=== PATIENT | female | born 1975 | race Caucasian/White ===

== ENCOUNTER 2020-06-01 18:21 | Inpatient (IN) | payer OTHER ==
[~2020-06-01] VITALS: Ht 162.6 cm; Wt 107.0 kg
--- NOTE | 2020-06-01 19:10 | NUR ---
PT CAME TO THE ER FROM [facility] C/O R SIDED HEADACHE AND FACIAL NUMBNESS SINCE 899. PT HAS A HX OF STROKE LAST 05/2019. NO NEUROLIGICAL DEFICITS. PT AAOX4, VSS, RESPIRATIONS EVEN AND UNLABORED ON ROOM AIR W/ NAD NOTED. PT CONNECTED TO THE TREATMENT COORDINATOR AND POX.
[2020-06-01 19:26] LABS: BASOPHILS % (AUTO) 0.7 % (0.0-2.0); EOSINOPHILS % (AUTO) 2.7 % (0.0-6.0); HEMATOCRIT 32 % (33-45); HEMOGLOBIN 10.9 g/dL (11.5-14.8); LYMPHOCYTES # (AUTO) 1.2 /CMM (0.8-4.8); LYMPHOCYTES % (AUTO) 29.1 % (20.0-44.0); MEAN CORPUSCULAR HGB CONC 34 g/dl (31.0-36.0); MEAN CORPUSCULAR VOLUME 90 fL (82-100); MONOCYTES # (AUTO) 0.3 /CMM (0.1-1.30); MONOCYTES % (AUTO) 7.1 % (2.0-12.0); NEUTROPHILS # (AUTO) 2.6 /CMM (1.8-8.9); NEUTROPHILS % (AUTO) 60.4 % (43.0-81.0); PLATELET COUNT (AUTO) 264 /CMM (150-450); RED BLOOD CELL COUNT(AUTO) 3.57 MIL/uL (4.0-5.2); WHITE BLOOD COUNT (AUTO) 4.2 K/uL (4.3-11.0)
--- NOTE | 2020-06-01 19:29 | NUR ---
PT TAKEN TO RADIOLOGY FOR CT
[2020-06-01] MEDS ORDERED: METOCLOPRAMIDE HCL 10 MG/2 ML VIAL IV ONE (19:30)
[2020-06-01] MEDS ORDERED: diphenhydrAMINE HCL 50 MG/ML VIAL IV ONE (19:30)
[2020-06-01] MEDS ORDERED: IV NS 0.9% 1,000 ML BAG IV ONE (19:30)
[2020-06-01] MEDS ORDERED: METOCLOPRAMIDE HCL 10 MG/2 ML VIAL ONE (19:32)
[2020-06-01] MEDS ORDERED: diphenhydrAMINE HCL 50 MG/ML VIAL ONE (19:32)
[2020-06-01 19:39] LABS: CALCIUM, SERUM 8.3 mg/dL (8.5-10.1); CARBON DIOXIDE 26 mmol/L (21-32); CHLORIDE 106 mmol/L (98-107); GLUCOSE 130 mg/dL (74-106); POTASSIUM 3.7 mmol/L (3.5-5.1); SODIUM SERUM 140 mmol/L (136-145); UREA NITROGEN, BLOOD 20 mg/dL (7-18)
--- NOTE | 2020-06-01 19:39 | NUR ---
PT BACK FROM RADIOLOGY
[2020-06-01 19:44] LABS: ALANINE AMINOTRANSFERASE 23 U/L (12-78); ALBUMIN 3.2 g/dL (3.4-5.0); ALKALINE PHOSPHATASE 62 U/L (46-116); ASPARTATE AMINOTRANSFERASE 15 U/L (15-37); BILIRUBIN,DIRECT 0.1 mg/dL (0.0-0.2); BILIRUBIN,TOTAL 0.3 mg/dL (0.2-1.0); TOTAL PROTEIN, SERUM 7.6 g/dL (6.4-8.2)
--- NOTE | 2020-06-01 19:54 | NUR ---
CALL FROM LAB, COVID NEGATIVE.
[2020-06-01] MEDS ORDERED: ONDANSETRON HCL/PF 4 MG/2 ML VIAL IV PRN (21:30)
[2020-06-01] MEDS ORDERED: IV NS 0.9% 1,000 ML IV PRN (21:30)
[2020-06-01] MEDS ORDERED: CLOPIDOGREL BISULFATE 75 MG TABLET PO ONE (21:30)
--- NOTE | 2020-06-01 21:46 | NUR ---
NURSE IS NOT AVAILABLE FOR REPORT. NURSE WILL CALL BACK
--- NOTE | 2020-06-01 21:50 | NUR ---
REPORT GIVEN TO ABDIEL PERALES FOR [place]
--- NOTE | 2020-06-01 22:21 | NUR ---
PT TRANSFERRED TO ROOM 108 VIA ACLS PROTOCOL
[2020-06-01 23:02] VITALS: BP 130/82
[2020-06-01] MEDS: SIMVASTATIN 20 MG TABLET PO SCH (23:23)
[2020-06-01] MEDS: BACLOFEN (10 MG) 10 MG TABLET PO SCH (23:51)
[2020-06-01] MEDS: HYDROCODONE/APAP 10/325MG TABLET PO PRN (23:52)
[2020-06-02] VITALS (7 sets, daily range): BP systolic 94–125; BP diastolic 54–80
[2020-06-02] MEDS ORDERED: SIMETHICONE 80 MG TAB.CHEW PO PRN (00:30)
[2020-06-02] MEDS ORDERED: ONDANSETRON 4 MG TAB.RAPDIS PO PRN (00:30)
[2020-06-02] MEDS ORDERED: diphenhydrAMINE HCL 50 MG/ML VIAL IV PRN (00:30)
[2020-06-02] MEDS ORDERED: BISA-79 GT (01:10)
[2020-06-02] MEDS: ZOLPIDEM TARTRATE 5 MG TABLET PO PRN (02:46)
[2020-06-02] MEDS: LIDOCAINE 5% (PATCH) 1 EA PATCH TP SCH (02:57)
--- NOTE | 2020-06-02 04:57 | NUR ---
RN notes Admitted a 44 year old female from ER via stretcher in stable condition. No distress noted, breathing even and unlabored. Alert and oriented, verbally able to communicate needs. Complaint of left leg pain, restless leg syndrome. [place] given with relief. Asked for ambien for sleep, with help. On room air, breathing even and unlabored. Meds given, needs attended. Kept clean and dry. Will endorse to next shift for continuity of care.
[2020-06-02 06:48] LABS: BASOPHILS % (AUTO) 0.6 % (0.0-2.0); EOSINOPHILS % (AUTO) 4.4 % (0.0-6.0); HEMATOCRIT 29 % (33-45); HEMOGLOBIN 9.8 g/dL (11.5-14.8); LYMPHOCYTES # (AUTO) 1.3 /CMM (0.8-4.8); LYMPHOCYTES % (AUTO) 32.7 % (20.0-44.0); MEAN CORPUSCULAR HGB CONC 34 g/dl (31.0-36.0); MEAN CORPUSCULAR VOLUME 89 fL (82-100); MONOCYTES # (AUTO) 0.3 /CMM (0.1-1.30); MONOCYTES % (AUTO) 7.3 % (2.0-12.0); NEUTROPHILS # (AUTO) 2.1 /CMM (1.8-8.9); PLATELET COUNT (AUTO) 210 /CMM (150-450); RED BLOOD CELL COUNT(AUTO) 3.24 MIL/uL (4.0-5.2); WHITE BLOOD COUNT (AUTO) 3.9 K/uL (4.3-11.0)
[2020-06-02 06:51] LABS: CALCIUM, SERUM 8.5 mg/dL (8.5-10.1); CREATININE 0.7 mg/dL (0.6-1.3); POTASSIUM 3.6 mmol/L (3.5-5.1)
--- NOTE | 2020-06-02 07:30 | NUR ---
AQUATICS INSTRUCTOR OPENING NOTES RECEIVED PT ALERT AND ORIENTED X4. NO ACUTE DISTRESS NOTED AT THIS TIME. ON ROOM AIR WITH O2 SAT OF 100%. ON CASING RUNNING MACHINE TENDER WITH NSR, AND HR IN 70S. WITH WEAKNESS ON LEFT LOWER EXT'S. SKIN IS WARM AND DRY TO TOUCH. IV#20 ON RIGHT HAND INTACT AND RUNNING NS @ 75ML/HR. BED KEPT IN LOW POSITION. BED ALARM ON. CALL LIGHT LEFT WITHIN REACH. WILL CONTINUE TO MONITOR.
[2020-06-02] MEDS: HYDROCODONE/APAP 10/325MG TABLET PO PRN ×2 (08:13→17:50)
[2020-06-02] MEDS: LACTULOSE 10 G/15 ML UDC (PYXIS) PO SCH ×2 (08:17→17:59)
[2020-06-02] MEDS: busPIRone 5 MG TABLET PO SCH ×3 (08:17→17:58)
[2020-06-02] MEDS: CHOLECALCIFEROL 1,000 UNIT TABLET (VIT D3) PO SCH (08:17)
[2020-06-02] MEDS: Fluoxetine 10 mg capsule PO SCH (08:17)
[2020-06-02] MEDS: DOCUSATE SODIUM 250 MG CAPSULE PO SCH (08:17)
[2020-06-02] MEDS: SENNOSIDES/DOCUSATE SODIUM 1 TAB TABLET PO SCH ×2 (08:17→17:58)
[2020-06-02] MEDS: PANTOPRAZOLE 40 MG TABLET.DR PO SCH ×2 (08:18→12:13)
[2020-06-02] MEDS: MULTIVIT W/MINERALS 1 TAB TABLET PO SCH (08:18)
[2020-06-02] MEDS: BACLOFEN (10 MG) 10 MG TABLET PO SCH ×2 (08:18→17:58)
[2020-06-02] MEDS: PREGABALIN 25 MG CAPSULE PO SCH ×2 (08:18→17:58)
[2020-06-02] MEDS: PRAMIPEXOLE DI-HCL 0.25 MG TABLET PO SCH ×2 (08:20→17:57)
[2020-06-02] MEDS: buPROPion 100 MG TABLET PO SCH ×2 (08:25→18:01)
[2020-06-02] MEDS: NYSTATIN TOP POWDER 15 GM BOTTLE TP SCH ×2 (08:25→18:01)
[2020-06-02] MEDS ORDERED: ASPIRIN EC 325 MG TABLET.DR PO SCH (09:00)
--- NOTE | 2020-06-02 11:06 | NUR ---
DEVELOPMENT OFFICER NOTES OFFERED FLU VACCINE, BUT PT DECLINED, DESPITE OF PROVIDING INFORMATION ON RISKS AND BENEFITS. CHARGE NURSE MADE AWARE.
[2020-06-02] MEDS ORDERED: RIVAROXABAN 10 MG TABLET PO SCH (17:00)
--- NOTE | 2020-06-02 18:52 | NUR ---
RN CLOSING NOTES PT ALERT AND ORIENTED X4. NO ACUTE DISTRESS NOTED AT THIS TIME. ON ROOM AIR WITH O2 SAT OF 100%. ON SECURITIES UNDERWRITER WITH NSR, AND HR IN 80S. WITH WEAKNESS ON LEFT LOWER EXT'S. SKIN IS WARM AND DRY TO TOUCH. IV#20 ON RIGHT HAND INTACT AND FLUSHING WELL. BED KEPT IN LOW POSITION. BED ALARM ON. CALL LIGHT LEFT WITHIN REACH. WILL ENDORSE TO NEXT SHIFT FOR CONTINUATION OF CARE.
--- NOTE | 2020-06-02 20:03 | NUR ---
Report received from ABDIEL Sharma
--- NOTE | 2020-06-02 20:15 | NUR ---
TELE/RN OPENING NOTES PT RECEIVED AWAKE, A/OX3. CLEAR SPEECH. NO FACIAL DROOP, NO TONGUE DEVIATION. ON ROOM AIR, BREATHING EVEN AND UNLABORED. CARDIAC MONITORING SHOWING NSR WITH HR 86. NO C/O PAIN, NUMBNESS OR TINGLING AT THIS TIME. 5/5 STRENGTH TO RIGHT ARM/LEG, WEAKNESS TO LEFT LEG 1/5 STRENGTH AND LEFT ARM FLACCID. PER PT, THIS IS HER BASELINE. SHUTTLE FINAL INSPECTOR STRENGTH R>L. PERRLA. IV TO RIGHT HAND PATENT AND INTACT. BED IN LOW/LOCKED POSITION WITH CALL LIGHT IN REACH. SIDE RAILS UPX3. BED ALARM ON FOR SAFETY. HOURLY AND PRN ROUNDING.
[2020-06-02] MEDS: SIMVASTATIN 20 MG TABLET PO SCH (21:44)
[2020-06-02] MEDS: AMITRIPTYLINE HCL 25 MG TABLET PO SCH (21:44)
[2020-06-02] MEDS: BISACODYL (5 MG) 5 MG TABLET.DR PO SCH (21:44)
[2020-06-02] MEDS: LamoTRIgine 25 MG TABLET PO SCH (21:44)
[2020-06-03] VITALS (7 sets, daily range): BP systolic 101–123; BP diastolic 60–76
[2020-06-03] MEDS: LIDOCAINE 5% (PATCH) 1 EA PATCH TP SCH ×2 (00:51→23:56)
[2020-06-03] MEDS: HYDROCODONE/APAP 10/325MG TABLET PO PRN ×3 (02:31→23:59)
--- NOTE | 2020-06-03 06:30 | NUR ---
TELE/RN CLOSING NOTES PT AWAKE, RESTING COMFORTABLY IN BED. HOB ELEVATED. ON ROOM AIR, BREATHING EVEN AND UNLABORED. DENIES SOB AND PAIN AT THIS TIME. IV TO RIGHT HAND PATENT AND INTACT. ON TELE MONITOR SHOWING NSR. PRN NORCO ADMINISTERED. NO NEUROLOGICAL CHANGES OVERNIGHT. ALL NEEDS MET AND ATTENDED. BED REMAINS IN LOW/LOCKED POSITION WITH CALL LIGHT INR EACH. SIDE RAILS UPX3. BED ALARM ON FOR SAFETY. WILL ENDORSE TO DAY SHIFT RN [place].
--- NOTE | 2020-06-03 07:30 | NUR ---
FANCY SEWER OPENING NOTES RECEIVED PT ALERT AND ORIENTED X4. NO ACUTE DISTRESS NOTED AT THIS TIME. ON ROOM AIR WITH O2 SAT OF 100%. ON EAP SPECIALIST WITH NSR, AND HR IN 60S. WITH WEAKNESS ON LEFT LOWER EXT'S. SKIN IS WARM AND DRY TO TOUCH. IV#20 ON RIGHT HAND INTACT AND FLUS BED KEPT IN LOW POSITION. BED ALARM ON. CALL LIGHT LEFT WITHIN REACH. WILL CONTINUE TO MONITOR.
[2020-06-03] MEDS: SENNOSIDES/DOCUSATE SODIUM 1 TAB TABLET PO SCH ×2 (09:38→16:29)
[2020-06-03] MEDS: busPIRone 5 MG TABLET PO SCH ×3 (09:38→16:29)
[2020-06-03] MEDS: CHOLECALCIFEROL 1,000 UNIT TABLET (VIT D3) PO SCH (09:38)
[2020-06-03] MEDS: Fluoxetine 10 mg capsule PO SCH (09:39)
[2020-06-03] MEDS: LACTULOSE 10 G/15 ML UDC (PYXIS) PO SCH ×2 (09:39→16:29)
[2020-06-03] MEDS: MULTIVIT W/MINERALS 1 TAB TABLET PO SCH (09:39)
[2020-06-03] MEDS: BACLOFEN (10 MG) 10 MG TABLET PO SCH ×2 (09:39→16:29)
[2020-06-03] MEDS: PRAMIPEXOLE DI-HCL 0.25 MG TABLET PO SCH ×2 (09:39→16:29)
[2020-06-03] MEDS: DOCUSATE SODIUM 250 MG CAPSULE PO SCH (09:39)
[2020-06-03] MEDS: buPROPion 100 MG TABLET PO SCH ×2 (09:41→16:31)
[2020-06-03] MEDS: PREGABALIN 25 MG CAPSULE PO SCH (09:41)
[2020-06-03] MEDS: NYSTATIN TOP POWDER 15 GM BOTTLE TP SCH ×2 (09:41→16:31)
[2020-06-03] MEDS: PANTOPRAZOLE 40 MG TABLET.DR PO SCH ×2 (09:43→13:24)
[2020-06-03] MEDS: PREGABALIN 100 MG CAPSULE PO SCH (16:29)
--- NOTE | 2020-06-03 17:20 | NUR ---
STONECUTTER HAND NOTES PT NOTED TO BE LETHARGIC, AND UNRESPONSIVE TO VERBAL STIMULI, BUT ABLE TO OPEN EYES AND MAKE MINIMAL GROANING SOUNDS TO TACTILE STIMULI. VITAL SIGNS TAKEN WITH BP TAKEN FROM LEFT ARM: 102.3, 104, 20, 67/43. ANOTHER SET OF VITALS TAKEN, BP TAKEN FROM RIGHT THIGH: 102.1, 103, 20, 111/39. CHANGE OF CONDITION REPORTED TO CHARGE NURSE. PCP PAGED TO REPORT CHANGE IN CONDITION. Addendum: 06/03/20 at 1919 by JAZ PENALOZA RN CLARIFICATION OF DOCUMENTATION DISREGARD ABOVE DOCUMENTATION, ERROR IN CHARTING DUE TO WRONG PATIENT.
--- NOTE | 2020-06-03 18:00 | NUR ---
DATA SME NOTES PT TRANSFERRED TO ICU. CONNECTED TO AED, AND APPLIED O2 AT 2LPM. BEDSIDE REPORT GIVEN TO TANNER MOORE). Addendum: 06/03/20 at 1920 by JAZ PENALOZA RN CLARIFICATION OF DOCUMENTATION DISREGARD ABOVE DOCUMENTATION, ERROR IN CHARTING DUE TO WRONG PATIENT.
--- NOTE | 2020-06-03 19:00 | NUR ---
LEGAL INTERNSHIP CLOSING NOTES PT REMAINS AWAKE, RESTING COMFORTABLY IN BED. HOB KEPT ELEVATED. ON ROOM AIR, BREATHING EVEN AND EASY WITH NO SHORTNESS OF BREATH. DENIES SOB AND PAIN AT THIS TIME. IV TO RIGHT HAND PATENT AND INTACT. ON TELE MONITOR SHOWING NSR. NO NEUROLOGICAL CHANGES NOTED. ALL NEEDS MET AND ATTENDED. BED REMAINS IN LOW/LOCKED POSITION WITH CALL LIGHT INR EACH. SIDE RAILS UPX3. BED ALARM ON FOR SAFETY. WILL ENDORSE TO NEXT SHIFT FOR [place]
--- NOTE | 2020-06-03 19:19 | NUR ---
CLARIFICATION IN DOCUMENTATION DISREGARD ABOVE DOCUMENTATION, ERROR IN CHARTING DUE TO WRONG PATIENT. Addendum: 06/03/20 at 1920 by JAZ PENALOZA RN ERROR IN DOCUMENTATION
--- NOTE | 2020-06-03 19:41 | NUR ---
SILK WEAVER OPENING NOTE: Patient in bed watching TV comfortably. Patient denies any pain or discomfort at this time. Patient awake, alert, and oriented x3. Patient able to make needs known. Noted IV access on right AC, 20 gauge, flushes well, patent, no redness, or infiltration. Patient has left sided weakness. Safety precaution is in place, bed is in the lowest level, brakes are on, alarm is on, side rails x2 are up, and call light is within reach. Will continue to monitor.
--- NOTE | 2020-06-03 20:00 | NUR ---
GAGE DESIGNER NOTE: Patient IV access, right hand, 20 gauge, is leaking. Removed IV access. Patient has IV access on right AC, 20 gauge.
[2020-06-03] MEDS: LamoTRIgine 25 MG TABLET PO SCH (21:10)
[2020-06-03] MEDS: SIMVASTATIN 20 MG TABLET PO SCH (21:10)
[2020-06-03] MEDS: BISACODYL (5 MG) 5 MG TABLET.DR PO SCH (21:10)
[2020-06-03] MEDS: AMITRIPTYLINE HCL 25 MG TABLET PO SCH (21:10)
[2020-06-03] MEDS: ZOLPIDEM TARTRATE 5 MG TABLET PO PRN (21:11)
--- NOTE | 2020-06-03 21:11 | NUR ---
PSYCHIATRIC ORDERLY NOTE: Patient verbalized trouble sleeping and needed aid in sleeping. Administered PRN Ambien per MD order. Will continue to monitor.
--- NOTE | 2020-06-03 22:11 | NUR ---
ACOUSTICAL INSTALLER NOTE: Patient in bed sleeping. Ambien was effective. Insomnia corrected.
--- NOTE | 2020-06-03 23:59 | NUR ---
SNACK STEWARD NOTE: Patient complains of generalized body pain. Patient describes pain as aching and throbbing and rates pain 4 on a 0-10 numerical scale. Administer PRN Lamar. Will continue to monitor.
[2020-06-04] VITALS: BP 101/72
--- NOTE | 2020-06-04 00:59 | NUR ---
PHARMACY BENEFIT MANAGER NOTE: Reassess patient pain. Patient in bed sleeping comfortably and does not appear to be in any pain. PRN [place]wl was effective.
[2020-06-04 04:00] VITALS: BP 104/70
[2020-06-04] MEDS: ACETAMINOPHEN 325 MG TABLET PO PRN ×2 (05:52→14:16)
--- NOTE | 2020-06-04 05:52 | NUR ---
HAND HARDENER NOTE: Patient complains of headache. Patient rates head ache 3 on a 0-10 numerical scale. Administered PRN Tylenol per MD order. Will continue to monitor.
--- NOTE | 2020-06-04 06:01 | NUR ---
OYSTER PICKER NOTE: Patient refused morning care and cleaning. Stated she wanted to go back to sleep and was too cold. Educated patient on hygiene but patient still refused.
--- NOTE | 2020-06-04 06:30 | NUR ---
DELI DEPARTMENT MANAGER CLOSING NOTE: Patient in bed awake, alert, and oriented x4. Patient able to make needs known. Patient refused AM care and cleaning. Educated patient on hygiene but patient still refused. Patient is currently breathing well on room air, breathing unlabored and even, no respiratory distress or SOB noted. Patient needs attended to and plan of care was carried out. Safety precaution is in place, bed is in the lowest level, bed is locked, alarm is on, side rails x2 are up, and call light is within reach. Will endorse to next shift.
[2020-06-04 08:00] VITALS: BP 116/78
--- NOTE | 2020-06-04 08:00 | NUR ---
rn notes received patient in the bed a/o x4, on room air, no acute respiratory distress, v/s wnl, patient has weakness on left side, neuro assessment done, patient tolerated breakfast well, using bed colunga, minimal assist turn and reposition in the bed. administered scheduled medication. patient refused dvt pump. call light within to reach. will continued monitoring.
--- NOTE | 2020-06-04 08:20 | NUR ---
rn notes PER BUILDING CUSTODIAN PATIENT DISCHARGE TO THE MED/SURGE.
[2020-06-04] MEDS: BACLOFEN (10 MG) 10 MG TABLET PO SCH (08:49)
[2020-06-04] MEDS: busPIRone 5 MG TABLET PO SCH ×2 (08:49→12:17)
[2020-06-04] MEDS: PANTOPRAZOLE 40 MG TABLET.DR PO SCH ×2 (08:49→12:16)
[2020-06-04] MEDS: MULTIVIT W/MINERALS 1 TAB TABLET PO SCH (08:49)
[2020-06-04] MEDS: CHOLECALCIFEROL 1,000 UNIT TABLET (VIT D3) PO SCH (08:49)
[2020-06-04] MEDS: PREGABALIN 100 MG CAPSULE PO SCH (08:49)
[2020-06-04] MEDS: Fluoxetine 10 mg capsule PO SCH (08:49)
[2020-06-04] MEDS: DOCUSATE SODIUM 250 MG CAPSULE PO SCH (08:49)
[2020-06-04] MEDS: LACTULOSE 10 G/15 ML UDC (PYXIS) PO SCH ×2 (08:50→08:54)
[2020-06-04] MEDS: SENNOSIDES/DOCUSATE SODIUM 1 TAB TABLET PO SCH (08:50)
[2020-06-04] MEDS: PRAMIPEXOLE DI-HCL 0.25 MG TABLET PO SCH (08:50)
[2020-06-04] MEDS: HYDROCODONE/APAP 10/325MG TABLET PO PRN (08:52)
--- NOTE | 2020-06-04 08:52 | NUR ---
rn notes administered Narco 10/325 mg po prn per patient request generalized pain 8/10 per pain scale, v/s taken bp 116/78, p-63. continued monitoring.
[2020-06-04] MEDS: buPROPion 100 MG TABLET PO SCH (08:57)
[2020-06-04] MEDS: NYSTATIN TOP POWDER 15 GM BOTTLE TP SCH (08:57)
[2020-06-04 10:42] LABS: BASOPHILS % (AUTO) 0.4 % (0.0-2.0); EOSINOPHILS % (AUTO) 4.1 % (0.0-6.0); HEMATOCRIT 31 % (33-45); HEMOGLOBIN 10.4 g/dL (11.5-14.8); LYMPHOCYTES # (AUTO) 0.9 /CMM (0.8-4.8); LYMPHOCYTES % (AUTO) 24.7 % (20.0-44.0); MEAN CORPUSCULAR HGB CONC 34 g/dl (31.0-36.0); MEAN CORPUSCULAR VOLUME 89 fL (82-100); MONOCYTES # (AUTO) 0.2 /CMM (0.1-1.30); NEUTROPHILS # (AUTO) 2.2 /CMM (1.8-8.9); NEUTROPHILS % (AUTO) 64.8 % (43.0-81.0); PLATELET COUNT (AUTO) 223 /CMM (150-450); RED BLOOD CELL COUNT(AUTO) 3.47 MIL/uL (4.0-5.2); WHITE BLOOD COUNT (AUTO) 3.5 K/uL (4.3-11.0)
--- NOTE | 2020-06-04 11:23 | NUR ---
rn notes administered benadryl 25 mg /ml iv push for itching.
[2020-06-04 11:26] LABS: CALCIUM, SERUM 8.2 mg/dL (8.5-10.1); CREATININE 0.9 mg/dL (0.6-1.3); POTASSIUM 3.4 mmol/L (3.5-5.1)
[2020-06-04] MEDS ORDERED: ATOR40TA PO (11:51)
[2020-06-04] MEDS ORDERED: ASPI-1169 PO (11:51)
[2020-06-04 12:00] VITALS: BP 118/72
--- NOTE | 2020-06-04 12:03 | NUR ---
RN NOTES Discharge diagnosis <R/O CVA, Headache with right sided numbness, History of CVA with left-sided hemiplegia, Restless leg syndrome, Azotemia, Normocytic normochromic anemia, complete occulusion Right ICA, Hypertension, Hyperlipidemia, Bipolar disorder, Morbid obesity with BMI of 40.3> Disposition <[facility] <No Answer> Discharge instructions <DC to convalescent home, take aspirin and atorvastatin, outpUt follow up with PCP and vascular surgery>.
[2020-06-04] MEDS ORDERED: POTASSIUM CHLORIDE 20 MEQ TAB.PRT.SR PO ONE (12:30)
--- NOTE | 2020-06-04 14:16 | NUR ---
rn notes administered tylenol 325 mg po prn for headache.
--- NOTE | 2020-06-04 15:57 | NUR ---
LAYUP WORKER NOTES PATIENT DISCHARGE AT THIS TIME GOING [facility] AT THIS TIME. PATIENT STABLE, REFUSED PAIN, V/S WNL, MEDICALLY STABLE. MED RECONCILIATION AND DISCHARGE ORDER REVIEWED AND EXPLAINED TO PATIENT. REPORT GIVEN SRUTHI DISLA. MERCHANDISE TEAM MANAGER VERBALIZED UNDERSTANDING. BELONGING WITH THE PATIENT. PATIENT SIGN PAPERWORK . PATIENT WILL FOLLOW PCP IN FACILITY. PRESCRIPTION GIVEN, PATIENT HOT PUNCH PRESS OPERATOR BY AMBULANCE.
== END 2020-06-04 15:52 | DRG 54 ==
LOC: ER 18:32 → TELE1 21:36 → MEDSG1 06-04 08:01
PROVIDERS: ADMIT Nurse Practitioner Acute Care; ATTEND Nurse Practitioner Acute Care
DX: G43.109 Migraine with aura, not intractable, without status migrainosus (principal); E66.9 Obesity, unspecified; I10 Essential (primary) hypertension; E78.5 Hyperlipidemia, unspecified; G25.81 Restless legs syndrome; R79.89 Other specified abnormal findings of blood chemistry; F31.9 Bipolar disorder, unspecified; E66.01 Morbid (severe) obesity due to excess calories; Z68.41 Body mass index [BMI] 40.0-44.9, adult; I69.854 Hemiplegia and hemiparesis following other cerebrovascular disease affecting left non-dominant side; I65.21 Occlusion and stenosis of right carotid artery
CPT/HCPCS: 36415; 70450-TC; 70496-TC; 71045-TC; 80048-TC; 80061-TC; 80076-TC; 82962-TC; 83880; 84484-TC; 84702-TC; 85025-TC; 85652-TC; 85730-TC; 87081-TC; 97112-TC; 97530-TC; C9803-CS; G0378; J1200; J2765; J3490; J7030

== ENCOUNTER 2020-11-01 16:36 | Inpatient (IN) | payer MEDICAID, OTHER ==
[~2020-11-01] VITALS: Ht 162.6 cm; Wt 127.5 kg
[~2020-11-01 16:36] MED LIST: ASPI-1169 PO; ATOR40TA PO; BISA-79 PO
[2020-11-01 18:00] LABS: BASOPHILS % (AUTO) 0.4 % (0.0-2.0); EOSINOPHILS % (AUTO) 2.8 % (0.0-6.0); HEMATOCRIT 27 % (33-45); HEMOGLOBIN 8.5 g/dL (11.5-14.8); LYMPHOCYTES # (AUTO) 1.2 /CMM (0.8-4.8); LYMPHOCYTES % (AUTO) 23.9 % (20.0-44.0); MEAN CORPUSCULAR HGB CONC 32 g/dl (31.0-36.0); MEAN CORPUSCULAR VOLUME 80 fL (82-100); MONOCYTES # (AUTO) 0.3 /CMM (0.1-1.30); MONOCYTES % (AUTO) 4.8 % (2.0-12.0); NEUTROPHILS # (AUTO) 3.5 /CMM (1.8-8.9); NEUTROPHILS % (AUTO) 68.1 % (43.0-81.0); PLATELET COUNT (AUTO) 212 /CMM (150-450); RED BLOOD CELL COUNT(AUTO) 3.34 MIL/uL (4.0-5.2); WHITE BLOOD COUNT (AUTO) 5.2 K/uL (4.3-11.0)
[2020-11-01] MEDS ORDERED: METOCLOPRAMIDE HCL 10 MG/2 ML VIAL IV ONE (18:00)
[2020-11-01] MEDS ORDERED: IV NS 0.9% 1,000 ML BAG IV ONE (18:00)
[2020-11-01] MEDS ORDERED: diphenhydrAMINE HCL 50 MG/ML VIAL IV ONE (18:00)
[2020-11-01 18:08] LABS: CALCIUM, SERUM 8.2 mg/dL (8.5-10.1); CARBON DIOXIDE 28 mmol/L (21-32); CHLORIDE 104 mmol/L (98-107); CREATININE 0.8 mg/dL (0.6-1.3); GLUCOSE 109 mg/dL (74-106); POTASSIUM 3.9 mmol/L (3.5-5.1); SODIUM SERUM 139 mmol/L (136-145); UREA NITROGEN, BLOOD 18 mg/dL (7-18)
[2020-11-01 18:14] LABS: ALANINE AMINOTRANSFERASE 22 U/L (12-78); ALBUMIN 3.1 g/dL (3.4-5.0); ALKALINE PHOSPHATASE 73 U/L (46-116); ASPARTATE AMINOTRANSFERASE 14 U/L (15-37); BILIRUBIN,DIRECT 0.1 mg/dL (0.0-0.2); BILIRUBIN,TOTAL 0.2 mg/dL (0.2-1.0); TOTAL PROTEIN, SERUM 7.8 g/dL (6.4-8.2)
[2020-11-01] MEDS ORDERED: METOCLOPRAMIDE HCL 10 MG/2 ML VIAL ONE (18:16)
[2020-11-01] MEDS ORDERED: diphenhydrAMINE HCL 50 MG/ML VIAL ONE (18:16)
[2020-11-01] MEDS ORDERED: MORPHINE SULFATE INJ 2 MG/ML DISP.SYRIN ONE (18:58)
[2020-11-01] MEDS ORDERED: MORPHINE SULFATE INJ 2 MG/ML DISP.SYRIN IV ONE (19:00)
[2020-11-01] MEDS ORDERED: IOHEXOL-350 100 ML VIAL IV ONE (19:43)
[2020-11-01] MEDS ORDERED: CT SWABBABLE VALVE TRANS SET 1 EA INFUS.SET MC ONE (19:43)
[2020-11-01] MEDS ORDERED: IV NS 0.9% 250 ML IV ONE (19:43)
[2020-11-01] MEDS ORDERED: ENOXAPARIN SODIUM 40 MG/0.4 ML DISP.SYRIN SQ SCH (23:00)
[2020-11-01 23:43] VITALS: BP 128/53
[2020-11-02] MEDS ORDERED: BLOOD SUGAR DIAGNOSTIC 1 EACH STRIP IN SCH
[2020-11-02] MEDS: HYDROCODONE/APAP 5/325MG TABLET PO PRN ×4 (01:24→20:31)
[2020-11-02 04:00] VITALS: BP 100/51
[2020-11-02 06:28] LABS: BASOPHILS % (AUTO) 0.7 % (0.0-2.0); EOSINOPHILS % (AUTO) 4.2 % (0.0-6.0); HEMATOCRIT 25 % (33-45); HEMOGLOBIN 8.1 g/dL (11.5-14.8); LYMPHOCYTES # (AUTO) 1.1 /CMM (0.8-4.8); LYMPHOCYTES % (AUTO) 32.1 % (20.0-44.0); MEAN CORPUSCULAR HGB CONC 33 g/dl (31.0-36.0); MEAN CORPUSCULAR VOLUME 79 fL (82-100); MONOCYTES # (AUTO) 0.3 /CMM (0.1-1.30); MONOCYTES % (AUTO) 8.6 % (2.0-12.0); NEUTROPHILS # (AUTO) 1.9 /CMM (1.8-8.9); NEUTROPHILS % (AUTO) 54.4 % (43.0-81.0); PLATELET COUNT (AUTO) 198 /CMM (150-450); RED BLOOD CELL COUNT(AUTO) 3.14 MIL/uL (4.0-5.2); WHITE BLOOD COUNT (AUTO) 3.5 K/uL (4.3-11.0)
[2020-11-02 06:36] LABS: CREATININE 0.8 mg/dL (0.6-1.3); POTASSIUM 3.4 mmol/L (3.5-5.1)
[2020-11-02] MEDS: BLOOD SUGAR DIAGNOSTIC 1 EACH STRIP IN SCH ×3 (07:30→11:09)
[2020-11-02 08:00] VITALS: BP 101/64
[2020-11-02] MEDS: PANTOPRAZOLE 40 MG TABLET.DR PO SCH (08:01)
[2020-11-02] MEDS ORDERED: APIX2.5T PO (08:09)
[2020-11-02] MEDS ORDERED: PANT40TA49 PO (08:09)
[2020-11-02] MEDS ORDERED: PRAM0.258 PO (08:09)
[2020-11-02] MEDS ORDERED: BUPR100T7 PO (08:09)
[2020-11-02] MEDS ORDERED: ALPR0.5T8 MT (08:09)
[2020-11-02] MEDS ORDERED: ZOLP5TAB8 PO (08:09)
[2020-11-02] MEDS ORDERED: FLUO10CA29 PO (08:09)
[2020-11-02] MEDS ORDERED: ASPIRIN 81 MG TAB.CHEW PO SCH ×2 (09:00)
[2020-11-02] MEDS: BISACODYL (5 MG) 5 MG TABLET.DR GT SCH (09:05)
[2020-11-02] MEDS ORDERED: PANTOPRAZOLE 40 MG TABLET.DR PO SCH (10:30)
[2020-11-02] MEDS ORDERED: ZOLPIDEM TARTRATE 5 MG TABLET PO PRN (10:30)
[2020-11-02] MEDS: PRAMIPEXOLE DI-HCL 0.25 MG TABLET PO SCH ×2 (10:58→17:04)
[2020-11-02] MEDS: Fluoxetine 10 mg capsule PO SCH (10:58)
[2020-11-02] MEDS: buPROPion SR 100 MG TABLET.ER PO SCH ×2 (11:27→17:04)
[2020-11-02 12:00] VITALS: BP 125/74
[2020-11-02] MEDS ORDERED: POTASSIUM CHLORIDE 20 MEQ POWDER PACKET PO SCH (12:30)
[2020-11-02 16:00] VITALS: BP 126/82
[2020-11-02] MEDS ORDERED: diphenhydrAMINE HCL 50 MG/ML VIAL IV ONE (17:00)
[2020-11-02] MEDS ORDERED: METOCLOPRAMIDE HCL 10 MG/2 ML VIAL IV ONE (17:00)
[2020-11-02] MEDS: ATORVASTATIN 40 MG TABLET PO SCH (17:04)
[2020-11-02 20:00] VITALS: BP 105/74
[2020-11-02] MEDS: predniSONE 20 MG TABLET PO SCH (20:27)
[2020-11-03] VITALS: BP 122/65
[2020-11-03] MEDS: ALPRAZOLAM 0.5 MG TABLET PO PRN ×2 (00:22→15:31)
[2020-11-03 04:00] VITALS: BP 158/90
[2020-11-03] MEDS: HYDROCODONE/APAP 5/325MG TABLET PO PRN ×2 (04:59→11:04)
[2020-11-03 06:06] LABS: BASOPHILS % (AUTO) 0.3 % (0.0-2.0); EOSINOPHILS % (AUTO) 0.1 % (0.0-6.0); HEMATOCRIT 30 % (33-45); HEMOGLOBIN 9.7 g/dL (11.5-14.8); LYMPHOCYTES # (AUTO) 0.5 /CMM (0.8-4.8); LYMPHOCYTES % (AUTO) 11.7 % (20.0-44.0); MEAN CORPUSCULAR HGB CONC 32 g/dl (31.0-36.0); MEAN CORPUSCULAR VOLUME 79 fL (82-100); MONOCYTES # (AUTO) 0.1 /CMM (0.1-1.30); MONOCYTES % (AUTO) 1.1 % (2.0-12.0); NEUTROPHILS % (AUTO) 86.8 % (43.0-81.0); PLATELET COUNT (AUTO) 244 /CMM (150-450); RED BLOOD CELL COUNT(AUTO) 3.82 MIL/uL (4.0-5.2); WHITE BLOOD COUNT (AUTO) 4.6 K/uL (4.3-11.0)
[2020-11-03 06:27] LABS: CREATININE 0.8 mg/dL (0.6-1.3); MAGNESIUM 2.2 mg/dL (1.8-2.4); POTASSIUM 4.1 mmol/L (3.5-5.1)
[2020-11-03 08:00] VITALS: BP 147/92
[2020-11-03] MEDS: PANTOPRAZOLE 40 MG TABLET.DR PO SCH (08:30)
[2020-11-03] MEDS: Fluoxetine 10 mg capsule PO SCH (08:30)
[2020-11-03] MEDS: PRAMIPEXOLE DI-HCL 0.25 MG TABLET PO SCH ×2 (08:30→16:43)
[2020-11-03] MEDS: predniSONE 20 MG TABLET PO SCH (08:30)
[2020-11-03] MEDS: buPROPion SR 100 MG TABLET.ER PO SCH (08:30)
[2020-11-03] MEDS: BISACODYL (5 MG) 5 MG TABLET.DR GT SCH (08:31)
[2020-11-03] MEDS: APIXABAN 2.5 MG TABLET PO SCH ×2 (08:31→16:43)
[2020-11-03] MEDS ORDERED: CLOPIDOGREL BISULFATE 75 MG TABLET PO SCH (10:00)
[2020-11-03] MEDS ORDERED: ONDANSETRON HCL/PF 4 MG/2 ML VIAL IV PRN (14:30)
[2020-11-03 16:00] VITALS: BP 142/90
[2020-11-03] MEDS: ATORVASTATIN 40 MG TABLET PO SCH (17:53)
[2020-11-03] MEDS ORDERED: MIRTAZAPINE 15 MG TABLET PO SCH (22:00)
[2020-11-04] MEDS ORDERED: Fluoxetine 10 mg capsule PO SCH (09:00)
== END 2020-11-03 19:39 | DRG 54 ==
LOC: ER 16:43 → TELE1 22:50 → MEDSG1 11-03 12:13
PROVIDERS: ATTEND Nurse Practitioner Family
DX: G43.909 Migraine, unspecified, not intractable, without status migrainosus (principal); G25.81 Restless legs syndrome; E66.01 Morbid (severe) obesity due to excess calories; I69.354 Hemiplegia and hemiparesis following cerebral infarction affecting left non-dominant side; I10 Essential (primary) hypertension; Z68.42 Body mass index [BMI] 45.0-49.9, adult; D64.9 Anemia, unspecified; E78.5 Hyperlipidemia, unspecified; G47.00 Insomnia, unspecified; Z20.822 Contact with and (suspected) exposure to COVID-19; Z88.6 Allergy status to analgesic agent; Z71.3 Dietary counseling and surveillance; I65.21 Occlusion and stenosis of right carotid artery; F33.1 Major depressive disorder, recurrent, moderate; F43.10 Post-traumatic stress disorder, unspecified; F41.0 Panic disorder [episodic paroxysmal anxiety]; E44.1 Mild protein-calorie malnutrition
CPT/HCPCS: 36415; 70450-TC; 70496-TC; 70498-TC; 80048-TC; 80061-TC; 80076-TC; 82962-TC; 83735-TC; 84443-TC; 84484-TC; 84702-TC; 85025-TC; 85652-TC; 85730-TC; 87081-TC; 92526; 92611-TC; 97110-TC; 97112-TC; 97530-TC; C9803; G0378; J1200; J1650; J2270; J2405; J2765; J7030; J7050; Q9967; U0003